=== PATIENT | female | born 1970 | race African-American/Black ===

== ENCOUNTER → 2020-09-16 | Outpatient (CLI) | payer MEDICAID ==
[~2020-09-16] MED LIST: ALBUAER3 IN; BECL0.07 IN; CARI250T PO; CITA20TA3 PO; FERR-7 PO; FUR40T PO; GAB400C PO; LORA1TAB23 PO; METF-370 PO; METO-169 PO; MONT10TA34 PO; PANT40TA2 PO; PIRO20CA PO; POTA12PO2 PO; TRAZ50TA2 PO
== END | disposition home or self-care (01) ==
LOC: Rad HDHVI 13:49
PROVIDERS: ATTEND Internal Medicine Cardiovascular Disease
DX: I08.3 Combined rheumatic disorders of mitral, aortic and tricuspid valves (principal); I48.91 Unspecified atrial fibrillation; R00.2 Palpitations; E66.9 Obesity, unspecified
CPT/HCPCS: 93306